=== PATIENT | female | born 1995 | race Caucasian/White ===

== ENCOUNTER 2018-08-12 02:00 | Emergency (ER) | payer SELFPAY ==
[~2018-08-12] VITALS: Ht 170.2 cm; Wt 131.5 kg
[2018-08-12 02:17] VITALS: BP 144/91
--- NOTE | 2018-08-12 02:18 | NUR ---
BIBS. C/O "TWISTED ANKLE WHILE WALKING DOWN STAIRS, PAINFUL" AOX4. -SOB -N/V -DIZZY.
== END 2018-08-12 05:55 | disposition home or self-care (01) ==
LOC: ER 02:05
DX: M25.572 Pain in left ankle and joints of left foot (principal); G43.909 Migraine, unspecified, not intractable, without status migrainosus; X50.1XXA Overexertion from prolonged static or awkward postures, initial encounter; Y93.89 Activity, other specified; Y92.89 Other specified places as the place of occurrence of the external cause; Y99.8 Other external cause status
CPT/HCPCS: 73610-TC